=== PATIENT | female | born 1990 | race Caucasian/White ===

== ENCOUNTER 2017-02-03 06:00 | Emergency (ER) | payer OTHER ==
[~2017-02-03] VITALS: Ht 170.2 cm; Wt 77.1 kg
[2017-02-03 06:20] VITALS: BP 140/86
[2017-02-03] MEDS ORDERED: MAGICMW MT (07:04)
== END 2017-02-03 07:10 | disposition home or self-care (01) ==
LOC: M ED 07:00
DX: J02.9 Acute pharyngitis, unspecified (principal); Z88.5 Allergy status to narcotic agent; Z88.8 Allergy status to other drugs, medicaments and biological substances